=== PATIENT | female | born 1995 | race African-American/Black ===

== ENCOUNTER 2025-04-15 22:14 | Emergency (ER) | payer BC ==
[~2025-04-15] VITALS: Ht 167.6 cm; Wt 81.6 kg
[2025-04-16] MEDS ORDERED: CYCL5TAB PO (00:55)
[2025-04-16] MEDS ORDERED: CYCLOBENZAPRINE 10 MG TABLET ONE (00:57)
[2025-04-16] MEDS ORDERED: IBUPROFEN 400 MG TABLET ONE ×2 (00:58)
[2025-04-16] MEDS: IBUPROFEN 400 MG TABLET PO ONE (01:01)
[2025-04-16] MEDS: CYCLOBENZAPRINE 10 MG TABLET PO ONE (01:01)
[2025-04-16 01:28] VITALS: BP 111/75; TEMP 98.3; O2SAT 100
== END 2025-04-16 01:28 | disposition home or self-care (01) ==
LOC: ER 22:44
DX: M54.2 Cervicalgia (principal); V49.9XXA Car occupant (driver) (passenger) injured in unspecified traffic accident, initial encounter; Y93.89 Activity, other specified; Y92.410 Unspecified street and highway as the place of occurrence of the external cause; Y99.9 Unspecified external cause status